=== PATIENT | male | born 1950 | race Caucasian/White ===

== ENCOUNTER 2019-01-07 11:53 | Inpatient (IN) | payer MEDICARE, OTHER ==
[~2019-01-07] VITALS: Ht 188 cm; Wt 97.7 kg
--- NOTE | ~2019-01-07 | HEMODYNAMI ---
PATIENT:GWENDOLYN MANN MEDICAL RECORD: [id number] : 52 LOCATION:[facility] D.2133 ADMISSION DATE: 01/07/19 Generatedon:01/08/20199:49 Patient name: GWENDOLYN MANN Patient #: [id number] SSN: DO B: 1950 Date of study: 01/08/2019 Page: Of Hemodynamic Procedure Report Patient Data Patient Demographics Procedure consent was obtained First Name: GWENDOLYN Gender: Male Last Name: MACKENZIE : 1950 Patient #: [id number] Age: 69 year(s) Race: Unknown Additional ID: [id number] Contact details [address]: [address] [place] [address] State: [place] City: [place] Zip code: [address] Admission Admission Data Admission Date: 01/07/2019 Admission Time: 13:44 Room #: D.2133 Procedure Procedure Types Cath Procedure Diagnostic Procedure LHC Cardioversion External Procedure Description Procedure Date Procedure Date: 01/08/2019 Procedure Start Time: 9:41 Procedure End Time: 9:44 Procedure Staff Name Function Robbie Rubio MD Performing Physician Inna Ramachandran RT Monitor Clinton Fry RT Scrub Destiney Moses RN Nurse Procedure Data Procedure Complications No complications Procedure Medications Medication Administration Route Dosage 0.9% NaCl I.V. 100 ml/hr Oxygen etCO2 Nasal cannula 2 l/min Versed I.V. 6 mg Fentanyl I.V. 100 mcg Hemodynamics Rest Heart Rate: 92 (bpm) Snapshots Pre Cath Intra NCS Post Cath Vital Signs Time Heart Resp SPO2 etCO2 NIBP Rhythm Pain Sedation Rate (ipm) (%) (mmHg) (mmHg) Status Level (bpm) 9:30:56 96 17 96 36 118/75(96) A-Fib 0 (11) 10(A) , No pain 9:35:05 81 18 98 18.9 107/72(94) A-Fib 0 (11) 10(A) , No pain 9:39:17 89 17 97 23.5 101/61(77) A-Fib 0 (11) 10(A) , No pain 9:42:07 63 16 96 28 109/66(85) NSR 0 (11) 9(A) , No pain 9:47:04 61 24 93 0 109/66(92) NSR 0 (11) 9(A) , No pain Medications Time Medication Route Dose Verified Delivered Reason Notes Eff ectiveness by by 9:30:36 0.9% NaCl I.V. 100 Robbie Haroa used for ml/hr Joanne Moses chief deputy court clerk 9:30:46 Oxygen etCO2 2 Robbie Haroa used for Nasal l/min Joanne Moses procedure cannula RN 9:41:26 Versed I.V. 6 mg Robbie Draperyla for moderate Joanne Moses sedation sedation for RN cardioversion 9:41:26 Fentanyl I.V. 100 Robbie Draperyla for moderate mcg Joanne Moses sedation sedation for RN cardioversion Procedure Log Time Note 9:15:24 Inna Ramachandran RT(R) sent for patient. Start room use. 9:25:20 Diagnostic Cath status Elective 9:25:36 Time tracking: Regular hours (M-F 7:00 - 5:00) 9:25:42 Plan of Care:Hemodynamics will remain stable., Cardiac rhythm will remain stable., Comfort level will be maintained., Respiratory function will remain adequate., Patient/ family verbilizes understanding of procedure., Procedure tolerated without complication., Recovers from procedure without complications.. 9:25:59 Patient received from PCU to CCL 1 Alert and oriented. Tansferred to table in Supine position. 9:26:00 Warm blankets applied, and ebony hugger turned on for patient comfort. 9:26:00 Correct patient and procedure confirmed by team. 9:26:01 Signed procedure consent form obtained from patient. 9:26:02 ECG and BP/O2 sat monitors applied to patient. 9:29:50 Procedure type changed to Cath procedure, Diagnostic procedure, LHC, Cardioversion External 9:29:52 Vital chart was started 9:29:53 Baseline sample Acquired. 9:30:03 Rhythm: atrial flutter 9:30:05 Full Disclosure recording started 9:30:36 0.9% NaCl 100 ml/hr I.V. was administered by Destiney Moses RN; used for procedure; 9:30:46 Oxygen 2 l/min etCO2 Nasal cannula was administered by Destiney Moses RN; used for procedure; 9:38:15 H&P Date Dictated: 01/08/2019 Within 30 days and on chart.. 9:38:17 Pre-procedure instructions explained to patient. 9:38:17 Pre-op teaching completed and patient verbalized understanding. 9:38:24 Family unavailable. 9:38:25 Patient NPO since Midnight. 9:38:41 Is the patient allergic to Iodine/contrast media? No. 9:38:47 Is patient on blood thinner?Yes 9:38:52 ACC The patient was administered the following blood thiners within the last 24 hours: ACCLovenox 9:38:57 Patient diabetic? No. 9:38:58 ----Pre-sedation anethsthesia assessment.---- 9:39:01 Previous problem with sedation/anesthesia? No ? 9:39:02 Snore? Yes 9:39:03 Sleep apnea? No 9:39:04 Deviated septum? No 9:39:05 Opens mouth fully? Yes 9:39:07 Sticks out tongue? No 9:39:09 Airway obstruction? Yes ? 9:39:11 Airway obstruction? No ? 9:39:14 Dentures? Yes out 9:39:35 Patient pain scale 0/10 ?. 9:39:45 IV patent on arrival in right forearm, left forearm with 0.9% NaCl at 10ml/hr. 9:39:54 Lab results completed and on chart. 9:39:55 Alarms reviewed by R. N. 9:39:56 Sharps counted by scrub and verified by R.N. 9:39:56 Physician arrived 9:40:24 --------ALL STOP TIME OUT------ 9:40:25 Final Timeout: patient, procedure, and site verified with staff and physician. All members of the team are in agreement. 9:40:32 Mid Chest site verified by team. 9:40:58 Fire Safety Assessment: A--An alcohol-based skin anteseptic being used preoperatively., C--Open oxygen or nitrous oxide is being used., D--An ESU, laser, or fiber-optic light is being used. 9:41:03 Physical assessment completed. ASA score P 2 - A patient with mild systemic disease as per Robbie Rubio MD. 9:41:07 Sedation plan: IV Moderate Sedation Medication:Versed, Fentanyl 9:41:25 Procedure started. 9:41:26 Fentanyl 100 mcg I.V. was administered by Destiney Moses RN; for sedation; moderate sedation for cardioversion 9:41:26 Versed 6 mg I.V. was administered by Destiney Moses RN; for sedation; moderate sedation for cardioversion 9:41:26 ------Cardioversion------ 9:41:27 Quick combo pads placed on patients chest and back. 9:41:30 Defibrillator synced and charged to 275 Joules. 9:41:32 Shock delivered. 9:41:35 Patient cardioverted to sinus rhythm . 9:41:41 Procedure ended.(Physican Out) 9:42:34 Sharps counted by scrub and verified by R.N. 9:42:39 Post procedure rhythm: sinus rhythm 9:42:43 Procedure and supply charges have been captured, reviewed, submitted and are correct. 9:42:49 Procedure Complication : No complications 9:44:33 Vital chart was stopped 9:44:33 See physician's report for complete and final results. 9:44:35 Report given to PCU. 9:44:39 Patient transfered to PCU with Bed. 9:44:41 Procedure ended. 9:44:41 Full Disclosure recording stopped 9:44:44 End room use (Document Last) Signature Audit Douglass Stage Time Signature Unsigned Intra-Procedure 01/08/2019 Clinton Fry RT([place]arshall) 9:49:45 AM Signatures Monitor : Inna Ramachandran RT Signature : Date : Time : [facility] [address] [place] [address]
--- NOTE | ~2019-01-07 | CN ---
PATIENT NAME:GWENDOLYN MANN MEDICAL RECORD: [id number] : 52 LOCATION:.ER ADMIT DATE: ACCOUNT: [id number] CONSULTING PHYSICIAN: SHAJI LINDSEY MD REFERRING PHYSICIAN: NAS MARIE MD DATE OF CONSULTATION: 01/07/2019 DIAGNOSES: Atrial fibrillation with rapid ventricular response. HISTORY OF PRESENT ILLNESS: This is a gentleman with no previous cardiac history, who did not know he was out of rhythm presented to GI after bowel prep for colonoscopy, was found to be in atrial fibrillation with rapid response. This is new. He was evaluated preoperatively and had a normal rate and rhythm. He is having no symptomatology, has no EKG changes with this. OVERALL IMPRESSION: Atrial fibrillation. We will give him sotalol 120 mg times 1. He is also having a Cardizem drip started. Hopefully, this will convert him. Workup at this time will be an echocardiogram. TRANSINT:[id number] Voice Confirmation ID: [id number] DOCUMENT ID: [id number] SHAJI LINDSEY MD CC: [id number] DICTATION DATE: 01/07/19 1308 [place] INSTALLER: 01/07/[address] [facility] [address] [place] [address]
--- NOTE | ~2019-01-07 | EC ---
PATIENT:GWENDOLYN MANN DATE OF SERVICE: 01/07/19 SEX: M MEDICAL RECORD: [id number] DATE OF : 52 LOCATION:D.M2 D.213 AGE OF PATIENT: 68 ADMISSION DATE: 01/07/19 REFERRING PHYSICIAN: INTERPRETING PHYSICIAN: SHAJI RUBIO MD ECHOCARDIOGRAM REPORT ECHO CHARGES 4 ECHO COMPLETE Date: 01/07/19 CLINICAL DIAGNOSIS: AFIB ECHOCARDIOGRAPHIC MEASUREMENTS (adult normal given) AC root (d.<3.7cm) 3.1 cm LV Septum d (<1.2 cm> 0.9 cm Valve Excursion 1.9 cm LV Septum (systole) 1.0 cm Left Atria (s.<4.0cm> 3.7 cm LVPW d(<1.2cm) 1.0 cm RV (d.<2.3cm) 3.1 cm LVPW (sytole) 1.2 cm LV diastole(<5.6CM) 5.2 cm MV E-F(>70mm/sec) cm LV systole 4.5 cm LVOT Diameter 2.2 cm MV exc.(>10mm) cm Est.ejection fraction (50-75%) % DOPPLER: LVIT cm/sec A 64 cm/sec E 0 cm/sec LA cm/sec RVSP 26.0 mmHg LVOT 83 cm/sec AOP1/2T m/s Asc. Ao 104 cm/sec RVOT 59 cm/sec RA cm/sec PA 74 cm/sec AV Gradient Peak 4.4 mmHg AV Mean 2.6 mmHg AV Area 2.7 cm MV Gradient Peak 3.4 mmHg MV Mean 2.1 mmHg MV Area cm COMMENTS: Assistant Corporate Controller: Jory [facility] Customer Care Manager: 1 Dr. Rubio TAPE# PACS Pericardial Effusion N DATE OF SERVICE: FINDINGS: 1. Left ventricular chamber size is within normal limits. Left ventricular systolic function is normal. Overall ejection fraction estimated at 55%. 2. Left atrium, right atrium, and right ventricular chamber sizes are within normal limits. 3. Valvular structures have normal structure and motion. 4. Doppler interrogation reveals mild tricuspid regurgitation, no other valvular insufficiency or stenosis. ECHOCARDIOGRAM REPORT [id number] GWENDOLYN MANN 5. No evidence of pericardial effusion or left ventricular thrombus. Pulmonary systolic pressure is normal estimated at 26 mmHg. 6. The patient is in atrial fibrillation during the study. TRANSINT:[id number] Voice Confirmation ID: [id number] DOCUMENT ID: [id number] SHAJI RUBIO MD CC: [id number] DICTATION DATE: 01/07/19 1614 PERPETUAL INVENTORY CLERK: 01/07/19 194 ADM IN [place] [address] [place] [address]
[2019-01-07] MEDS ORDERED: LISINOPRIL5 MG PO (12:02)
[2019-01-07] MEDS ORDERED: LIPITOR40 MG PO (12:03)
[2019-01-07] MEDS ORDERED: NEURONTIN 300300 MG PO (12:03)
[2019-01-07 12:48] LABS: HEMATOCRIT 46.8 % (42.0-54.0); LYMPHOCYTES 19.8 % (15-50); MCH 30.3 pg (26.0-34.0); MCHC 34.2 g/dL (31.0-37.0); MCV 88.6 fL (80.0-100.0); MEAN PLATELET VOLUME 10.3 fL (7.4-10.4); NEUTROPHILS 73.2 % (40-80); PLATELET COUNT 205 10x3/uL (130-400); RBC 5.28 10x6/uL (4.20-6.10); RDW 14.7 % (11.5-14.5); WBC 8.9 10x3/uL (4.8-10.8)
[2019-01-07 12:54] LABS: ALBUMIN 3.6 g/dL (3.4-5.0); ALKALINE PHOSPHATASE 33 U/L (46-116); ALT (SGPT) 20 U/L (10-68); BILIRUBIN - TOTAL 0.62 mg/dL (0.2-1.3); CALC OSMOLALITY 284 mosm/kg (275-300); CALCIUM 8.6 mg/dL (8.5-10.1); CARBON DIOXIDE 23.7 mmol/L (21.0-32.0); CHLORIDE - SERUM 106 mmol/L (98-107); GLUCOSE 100 mg/dL (74-106); POTASSIUM - SERUM 4.6 mmol/L (3.5-5.1); PROTEIN - SERUM 7.9 g/dL (6.4-8.2); SODIUM 142 mmol/L (136-145); UREA NITROGEN 18 mg/dL (7-18); eGFR NON AFRICAN AMERICAN 79 mL/min (90-120)
[2019-01-07 13:00] VITALS: BP 95/73
[2019-01-07 13:06] LABS: CKMB 3.2 U/L (0.0-3.6); CREATINE KINASE 244 UL (21-232); LIPASE 130 U/L (73-393); MAGNESIUM - SERUM 2.1 mg/dL (1.8-2.4); PRO BNP 19 pg/mL (0-125); TROPONIN-I < 0.017 ng/mL (0.000-0.060)
[2019-01-07 13:52] LABS: APPEARANCE CLEAR (CLEAR); BILIRUBIN NEGATIVE (NEGATIVE); COLOR YELLOW (YELLOW); GLUCOSE NEGATIVE (NEGATIVE); KETONE NEGATIVE (NEGATIVE); NITRITE NEGATIVE (NEGATIVE); PROTEIN NEGATIVE (NEGATIVE); SPECIFIC GRAVITY 1.015 (1.005-1.020); UROBILINOGEN NORMAL (NORMAL)
[2019-01-07 14:00] VITALS: BP 109/61
[2019-01-07 15:00] VITALS: BP 100/66
[2019-01-07 17:59] VITALS: BMI 23.8
[2019-01-07 20:00] VITALS: BP 106/61
[2019-01-08] MEDS ORDERED: MELATONIN10 M1 PO (00:16)
[2019-01-08 00:25] VITALS: BP 90/55
[2019-01-08 04:25] VITALS: BP 105/61
[2019-01-08 08:41] VITALS: BP 105/66
[2019-01-08 13:26] VITALS: Ht 188 cm; Wt 97.7 kg
[2019-01-08] MEDS ORDERED: BETAPACE 80 MG80 MG PO (13:26)
--- NOTE | 2019-01-08 16:49 | MORECARE ---
CASE MANAGEMENT DISCHARGE SUMMARY PATIENT: GWENDOLYN MANN UNIT: [id number] ADM DATE: 01/07/19 AGE: 69 : 52 SEX: M ROOM/BED: D.2133 AUTHOR: RADHA,DOC PHYSICIAN: REFERRING PHYSICIAN: NICK BURT MD DATE OF SERVICE: 01/08/19 Discharge Plan Patient Name: GWENDOLYN MANN Facility: [facility]:[place] : 1950 Planned Disposition: Home Anticipated Discharge Date: 01/08/19 Discharge Date: 01/08/2019 Expected LOS: 1 Initial Reviewer: [email or web address] Initial Review Date: 01/08/2019 Generated: 01/08/19 5:48 pm Comments DCP- Discharge Planning Updated by [email or web address]: Galen Nash on 01/08/19 3:[address] Patient Name: GWENDOLYN MANN Admission Status: ER Accout number: [id number] Admission Date: 01-07-2019 : 1950 Admission Diagnosis: Attending: NICK BURT Current LOS: 1 Anticipated DC Date: 01-08-2019 Planned Disposition: Home Primary Insurance: MEDICARE A & B Discharge Planning Comments: CM MET WITH PT AND SPOUSE IN ROOM TO DISCUSS DISCHARGE PLANNING AND NEEDS. GWENDOLYN MANN provided verbal consent to discuss current and ongoing needs with/in the presence of: KATHERIN, SPOUSE. PT HAS 13 STEPS UP FROM THE BASEMENT AND CARPORT LEVEL TO THE MAIN LIVING LEVEL OF THE HOME. PT REPORTS LIVING AT HOME INDEPENDENTLY WITH HIS SPOUSE. PT HAS NO MEDICAL EQUIPMENT AND NO OUTSIDE SERVICES ASSISTING IN THE HOME. CM DISCUSSED AVAILABILITY OF HOME HEALTH, REHAB SERVICES AND MEDICAL EQUIPMENT. PT DENIES DISCHARGE NEEDS, REPORTS HIS IS HERE TO PICK HIM UP FOR DISCHARGE HOME. METAL COATER NURSE NOTIFIED. Absorption Plant Operator Helper: Galen Nash DCPIA - Discharge Planning Initial Assessment Updated by [email or web address]: Galen Nash on 01/08/19 4:45 pm * Is the patient Alert and Oriented? Yes * How many steps to enter\exit or inside your home? 13 * PCP DR. ALCALA * Pharmacy [facility] * Preadmission Environment Home with Family * ADLs Independent * Equipment None * Other Equipment NO MEDICAL EQUIPMENT PROVIDER PREFERENCE * List name and contact numbers for known caregivers / representatives who currently or will assist patient after discharge: KATHERIN MANN, SPOUSE, * Verbal permission to speak to the caregivers and representatives has been obtained from the patient. Yes * Community resources currently utilized None * Please name any agencies selected above. NONE * Additional services required to return to the preadmission environment? No * Can the patient safely return to the preadmission environment? Yes * Has this patient been hospitalized within the prior 30 days at any hospital? No Patient Name: GWENDOLYN MANN Page [phone] at 1649 All edits/amendments must be made on the electronic document DICTATION DATE: 01/08/191647 FURNACE BRAZER: KINSEY 01/08/191647 RPT#: [id number] DC DATE:01/08/19 STATUS: DIS IN [facility] [address] [place] [address] END OF REPORT
== END 2019-01-08 16:05 | disposition home or self-care (01) | DRG 309 ==
LOC: D.ER 11:53 → D.M2 13:44
PROVIDERS: Family Medicine; ADMIT Internal Medicine Nephrology; ATTEND Internal Medicine Nephrology
DX: I48.91 Unspecified atrial fibrillation (principal); F17.213 Nicotine dependence, cigarettes, with withdrawal; I10 Essential (primary) hypertension; G62.9 Polyneuropathy, unspecified

== ENCOUNTER → 2020-07-23 08:36 | Outpatient (CLI) | payer MEDICARE, OTHER ==
[2019-01-08 13:26] VITALS: BMI 23.8
[~2020-07-23 08:36] MED LIST: BETAPACE 80 MG80 MG PO; LIPITOR40 MG PO; LISINOPRIL5 MG PO; MELATONIN10 M1 PO; NEURONTIN 300300 MG PO
--- NOTE | 2020-07-24 08:55 | EC ---
PATIENT:GWENDOLYN MANN DATE OF SERVICE: 07/23/20 SEX: M MEDICAL RECORD: [id number] DATE OF : 52 LOCATION:D.[facility] AGE OF PATIENT: 70 ADMISSION DATE: 07/23/20 REFERRING PHYSICIAN: INTERPRETING PHYSICIAN: CHERYL NERI MD ECHOCARDIOGRAM REPORT ECHO CHARGES 4 ECHO COMPLETE Date: 07/23/20 CLINICAL DIAGNOSIS: HX OF HTN/AFIB/TRICUSPID REGURG ECHOCARDIOGRAPHIC MEASUREMENTS (adult normal given) AC root (d.<3.7cm) 3.4 cm LV Septum d (<1.2 cm> 1.4 cm Valve Excursion 1.5 cm LV Septum (systole) 1.8 cm Left Atria (s.<4.0cm> 3.9 cm LVPW d(<1.2cm) 1.4 cm RV (d.<2.3cm) 3.3 cm LVPW (sytole) 1.8 cm LV diastole(<5.6CM) 4.9 cm MV E-F(>70mm/sec) cm LV systole 3.4 cm LVOT Diameter 1.8 cm MV exc.(>10mm) 1.2 cm Est.ejection fraction (50-75%) % DOPPLER: LVIT cm/sec A 91.0 cm/sec E 36.0 cm/sec LA cm/sec RVSP 22 mmHg LVOT 73 cm/sec AOP1/2T 663 m/s Asc. Ao 98 cm/sec RVOT 46 cm/sec RA cm/sec PA 89 cm/sec AV Gradient Peak 3.87 mmHg AV Mean 1.81 mmHg AV Area 2.2 cm MV Gradient Peak 3.98 mmHg MV Mean 1.25 mmHg MV Area cm COMMENTS: Corporate Training Manager: 2 RANI RAMOS Explosive Technician: 3 Dr. Hill TAPE# PACS Pericardial Effusion N DATE OF SERVICE: Adequate 2D, color flow imaging, spectral Doppler, and M-mode. LVH is present. LV internal dimension is normal. Wall motion is normal. EF is greater than or equal to 55%. Aortic valve is tricuspid. No evidence of stenosis by Doppler interrogation. There is mild AI by color flow imaging. Left atrium is normal. Mitral valve shows no prolapse. Trace MR. Right-sided chambers are grossly normal. Mild TR. ECHOCARDIOGRAM REPORT [id number] GWENDOLYN MANN NTS:[id number] Voice Confirmation ID: [id number] DOCUMENT ID: [id number] CHERYL NERI MD at 0855 CC: [id number] DICTATION DATE: 07/23/20 1351 OFFICE MANAGER RECEPTIONIST: 07/23/20 2109 DEP CLI 07/23/20 [place] [id number] [place] [id number]
== END | disposition home or self-care (01) ==
LOC: D.HCCECHO 08:36
PROVIDERS: ATTEND Internal Medicine Interventional Cardiology
DX: I10 Essential (primary) hypertension (principal)